=== PATIENT | female | born 1960 | race Caucasian/White ===

== ENCOUNTER 2017-11-03 13:36 | Outpatient (CLI) | payer BC | END 2017-11-03 18:27 | disposition home or self-care (01) | LOC: SMA 13:36 | PROVIDERS: ATTEND Obstetrics & Gynecology | DX: Z12.31 Encounter for screening mammogram for malignant neoplasm of breast (principal) | CPT/HCPCS: G0202 ==

== ENCOUNTER 2018-11-15 12:45 | Outpatient (CLI) | payer BC | END 2018-11-15 20:59 | disposition home or self-care (01) | LOC: SMA 12:45 | PROVIDERS: ATTEND Obstetrics & Gynecology | DX: Z12.31 Encounter for screening mammogram for malignant neoplasm of breast (principal) | CPT/HCPCS: 77067 ==

== ENCOUNTER 2020-04-09 13:16 | Outpatient (CLI) | payer BC | END 2020-04-09 20:33 | disposition home or self-care (01) | LOC: SMA 13:16 | PROVIDERS: ATTEND Family Medicine | DX: R92.8 Other abnormal and inconclusive findings on diagnostic imaging of breast (principal); R92.2 Inconclusive mammogram | CPT/HCPCS: 77066 ==

== ENCOUNTER 2021-06-22 13:49 | Outpatient (CLI) | payer BC | END 2021-06-22 20:27 | disposition home or self-care (01) | LOC: SMA 13:49 | PROVIDERS: ATTEND Obstetrics & Gynecology | DX: Z12.31 Encounter for screening mammogram for malignant neoplasm of breast (principal) | CPT/HCPCS: 77067 ==